=== PATIENT | female | born 1990 | race Caucasian/White ===

== ENCOUNTER 2016-07-27 04:33 | Emergency (ER) | payer OTHER ==
[~2016-07-27] VITALS: Ht 172.7 cm; Wt 72.6 kg
[2016-07-27 05:20] LABS: ABSOLUTE BASOPHIL COUNT 0 /CUMM (0.0-0.2); ABSOLUTE EOSINOPHIL COUNT 0.1 /CUMM (0.0-0.7); ABSOLUTE GRANULOCYTE CT 11.5 /CUMM (1.4-6.5); ABSOLUTE LYMPH COUNT 1.4 /CUMM (1.2-3.4); ABSOLUTE MONOCYTE COUNT 0.8 /CUMM (0.10-0.60); BASOPHIL % 0.3 % (0.0-2.0); EOSINOPHIL % 0.4 % (0-5); GRANULOCYTE % 83.3 % (42.2-75.2); HEMATOCRIT 45.1 % (37-47); MEAN CORPUSCULAR HGB CONC 33.2 G/DL (33.0-37.0); MEAN CORPUSCULAR VOLUME 90.4 FL (81.0-99.0); MEAN PLATELET VOLUME 8.5 FL (7.4-10.4); PLATELET COUNT 295 /CUMM (130-400); RBC DISTRIBUTION WIDTH 13.4 % (11.5-14.5); RED BLOOD CELL CT 4.99 /CUMM (4.20-5.40); WHITE BLOOD CELL COUNT 13.8 /CUMM (4.8-10.8)
--- NOTE | 2016-07-27 05:30 | ED GI/GU/ABDOMINAL COMPLAINT ---
History of Present Illness General Chief Complaint: Abdominal Pain/Flank Pain Stated Complaint: N/V/D ABD PAIN Source: patient, family, old records Exam Limitations: no limitations Vital Signs & Intake/Output Vital Signs & Intake/Output Vital Signs Date Time Temp Pulse Resp B/P Pulse O2 O2 Flow FiO2 Ox Delivery Rate 07/27 0519 Room Air 07/27 0454 96.9 96 18 162/96 99 Room Air Allergies Coded Allergies: amoxicillin (07/27/16) Triage Note: PT TO TRIAGE C/O N/V/D SINCE YESTERDAY. Triage Nurses Notes Reviewed? yes LMP (ages 10-50): unknown ? n Is pt currently ? No Onset: Evening Duration: hour(s):, continues in ED, intermittent Timing: recent history Quality/Severity: aching, mild, vomiting Location: generalized abdomen Radiation: epigastric Activities at Onset: rest Prior Abdominal Problems: nausea reflux symptoms Past Sexual History: Unobtainable at this time Modifying Factors: Worsens With: eating. Associated Symptoms: abdominal pain, diarrhea, nausea/vomiting HPI: 8 hours prior to admission patient complains of nausea vomiting diarrhea with mild achy generalized abdominal discomfort radiating to the epigastric improved with vomiting. She reports being exposed to a friend with similar symptoms. She denies fever chills chest pain cough shortness of breath headache dysuria rash bleeding . Past History Travel History Traveled to [place] past 21 day No Medical History Any Pertinent Medical History? see below for history Neurological: migraine Gastrointestinal: GERD Endocrine: hypothyroidism Surgical History Surgical History: non-contributory Psychosocial History What is your primary language Mexican Tobacco Use: Never used ETOH Use: occasional use Family History Hx Contributory? Yes Review of Systems Review of Systems Constitutional: Reports: see HPI, malaise. EENTM: Reports: no symptoms. Respiratory: Reports: no symptoms. Cardiovascular: Reports: no symptoms. GI: Reports: see HPI, abdominal pain, diarrhea, nausea, vomiting. Genitourinary: Reports: no symptoms. Musculoskeletal: Reports: no symptoms. Skin: Reports: no symptoms. Neurological/Psychological: Reports: no symptoms. Hematologic/Endocrine: Reports: no symptoms. Immunologic/Allergic: Reports: no symptoms. All Other Systems: Reviewed and Negative Physical Exam Physical Exam General Appearance: well developed/nourished, alert, awake, anxious, moderate distress, obese Head: atraumatic, normal appearance Eyes: Bilateral: normal appearance, PERRL, EOMI, normal inspection. Ears, Nose, Throat, Mouth: hearing grossly normal, moist mucous membrane Neck: normal inspection, supple, full range of motion, normal alignment, no midline tenderness Respiratory: normal breath sounds, chest non-tender, no respiratory distress, quiet respiration, lungs clear Cardiovascular: regular rate/rhythm, normal peripheral pulses, norml femoral pulses equa Peripheral Pulses: 4+ carotid (R), 4+ carotid (L) Gastrointestinal: soft, non-tender, abnormal bowel sounds Back: normal inspection, normal range of motion Extremities: normal range of motion, no ligament instability Neurologic/Psych: no motor/sensory deficits, awake, alert, oriented x 3, normal gait, normal mood/affect, intensive care ambulance paramedic II-XII nml as tested Skin: intact, normal color, warm/dry Core Measures ACS in differential dx? No Severe Sepsis Present: No Septic Shock Present: No Progress Differential Diagnosis: biliary colic, gastritis, pancreatitis, PUD/GERD Plan of Care: Orders Procedure Date/time Status LIPASE 07/27 050 Complete HUMAN BETA HCG SCREEN 07/27 501 Complete COMPREHENSIVE METABOLIC PANEL 07/27 501 Complete CBC WITHOUT DIFFERENTIAL 07/27 501 Complete Laboratory Tests 07/27/16 0511: Anion Gap 15, Estimated GFR > 60, BUN/Creatinine Ratio 17.1, Glucose 100 H, Calcium 9.9, Total Bilirubin 0.5, AST 29, ALT 38, Alkaline Phosphatase 65, Total Protein 7.6, Albumin 4.3, Globulin 3.3, Albumin/Globulin Ratio 1.3, Lipase 74, Total Beta HCG NEGATIVE, CBC w Diff MAN DIFF ORDERED, RBC 4.99, MCV 90.4, MCH 30.0, RDW 13.4, MPV 8.5, Gran % 83.3 H, Lymphocytes % 10.1 L, Monocytes % 5.9, Eosinophils % 0.4, Basophils % 0.3, Absolute Granulocytes 11.5 H, Segmented Neutrophils 77 H, Band Neutrophils 6 H, Absolute Lymphocytes 1.4, Lymphocytes 9 L, Monocytes 8, Absolute Monocytes 0.8 H, Absolute Eosinophils 0.1, Absolute Basophils 0, Platelet Estimate ADEQUATE, Normocytic RBCs VERIFIED, Normochromic RBCs VERIFIED, PUBS MCHC 33.2 Initial ED EKG: none Departure Departure Time of Disposition: [id number] Disposition: HOME OR SELF CARE Condition: Stable Clinical Impression Primary Impression: Nausea, vomiting, and diarrhea Secondary Impressions: Abdominal pain in female patient Referrals: SILVESTRE STEPHENS MD (PCP/Family) Additional Instructions: Clear liquids in small amounts for 12-24 hours until better Departure Forms: Customer Survey General Discharge Information RELEASE- WORK Prescriptions: Current Visit Scripts Ondansetron (Zofran Odt) 1 TAB SL TID PRN nausea #15 TAB Hyoscyamine Sulfate (Levsin-Sl) 1-2 TAB SL Q4P PRN abdominal pain #30 TAB
[2016-07-27] MEDS ORDERED: ZOFRAN ODT4 M1 SL (06:14)
[2016-07-27] MEDS ORDERED: LEVSIN-SL0.125 MG SL (06:14)
[2016-07-27 06:22] VITALS: BP 138/82
== END 2016-07-27 06:24 ==
LOC: ERH 04:33
PROVIDERS: Emergency Medicine
DX: R11.2 Nausea with vomiting, unspecified (principal); R19.7 Diarrhea, unspecified; R10.84 Generalized abdominal pain
CPT/HCPCS: 96374; 96375; J2405